=== PATIENT | female | born 1975 ===

== ENCOUNTER 2025-03-03 14:00 | Emergency (ER) | payer MEDICAID ==
[~2025-03-03] VITALS: Ht 157.5 cm; Wt 89.0 kg
[2025-03-03 14:14] VITALS: BP 128/72; PULSE 85; TEMP 97; O2SAT 96
[2025-03-03 16:46] VITALS: RESP 16
[2025-03-03] MEDS: ketorolac trometh 30MG/ML vial 30 MG/ML VIAL IM ONE (16:46)
--- NOTE | 2025-03-03 16:47 | Physician Documentation ---
History of Present Illness ~ Chief Complaint: Mechanical Fall Stated Complaint: FALL Time Seen by MD: 15:02 HPI This 49-year-old female presents to the ED with a complaint of left hip and knee pain which developed over the last 2-3 days. She states she fell on Friday and did not have any pain. She reports that the pain has increased for unknown reasons. She denies any shortness of breath or chest pain States she is able to ambulate without difficulty.. She has been taking Tylenol for the pain. Denies any head strikes denies any numbness or tingling low back pain or any red flag symptoms Tetanus within 5 Years?: No Medication Reconciliation Allergies: Coded Allergies: No Known Allergies (Unverified , 03/03/25) Review of Systems All Other Systems at this time: Reviewed and Negative ROS As stated above in the HPI, otherwise all systems are reviewed and negative. Constitutional: Reports: no symptoms reported Physical Exam Vital Signs: Temperature: 97.0, Source: Temporal, Heart Rate: 85, Respiratory Rate: 16, BP: 128/72, Pulse Oximetry: 96, Weight: 89.050 Oxygen Flow Rate: 0 Physical Exam General: Alert, no apparent distress. HEENT: PERRL, EOMI, no injection, moist mucous membranes. Neck: Full range of motion. Respiratory: Lungs clear, no respiratory distress. Chest: No accessory muscle use. Cardiovascular: Regular rate and rhythm, no murmurs. Gastrointestinal: Soft, nontender, nondistended. Bowels sounds present. Extremities: Normal range of motion, no deformity. Neurologic: Oriented x4. Psychiatric: Normal mood and affect. Skin: Normal color, warm and dry. No edema, no ecchymosis. Progress Results/Orders Results/Orders Orders - JASBIR MENEZES ORDER SCHEDULE CLERK Hip Unilateral 2 Views (03/03/25 16:37) Completed Orders - JASBIR MENEZES ORDER SCHEDULE CLERK Ketorolac Trometh 30mg/Ml Vial (Toradol (03/03/25 16:10) Hip Unilateral 2 Views (03/03/25 16:37) Medications Received in ER Medications (Trade) Dose Ordered Sig/Eve Route PRN Reason Start Time Stop Time Status Last Admin Dose Admin (Toradol inj. 30mg/ml) 30 mg ONCE ONCE IM 03/03/25 16:10 03/03/25 16:11 DC 03/03/25 16:46 30 MG Vital Signs 03/03/25 03/03/25 14:14 16:46 Temp 97.0 Pulse 85 Resp 16 16 B/P (MAP) 128/72 Pulse Ox 96 O2 Flow Rate 0 Departure Disposition: 01 HOME / SELF CARE / HOMELESS Impression: Primary Impression: Hip pain Additional Impression: Fall Discharge Instructions: Fall Prevention in the Home, Adult, [id number] Referrals: NO PRIMARY CARE PROVIDER (PCP) Signature Scribe Signature: t Attestation: Scribed for Jasbir Menezes Director Of Occupational Therapy by Jasbir Menezes - JHOAN . 03/03/25 22:52 JASBIR MENEZES NP Mar 03, 2025 16:47
--- NOTE | 2025-03-03 16:56 | RADIOLOGY REPORT ---
EXAM: DI HIP UNILATERAL 2 VIEWS REASON FOR EXAM: fall left TECHNIQUE: AP pelvis and AP and frogleg lateral views of the left hip are submitted for review. COMPARISON: None FINDINGS: The bones demonstrate normal mineralization. An IUD projects over the pelvis. The ilioischi al and iliopectineal lines are intact. There is no radiographic evidence of fracture or dislocation. There is no significant narrowing of either hip joint. The soft tissues are grossly unremarkable. IMPRESSION: No acute fracture or dislocation.
== END 2025-03-03 17:21 | disposition home or self-care (01) ==
LOC: ER 14:01
DX: M25.552 Pain in left hip (principal); M25.562 Pain in left knee
CPT/HCPCS: 73502; 96372; 99284; J1885